=== PATIENT | female | born 1990 | race Caucasian/White ===

== ENCOUNTER 2017-02-13 20:15 | Emergency (ER) | payer MEDICAID, OTHER ==
[2017-02-13 20:22] VITALS: BMI 32.1
[2017-02-13 20:39] VITALS: BP 113/72
[2017-02-13 21:23] LABS: BILIRUBIN,URINE NEGATIVE (NEGATIVE); BLOOD/HEMOGLOBIN,URINE NEGATIVE (NEGATIVE); GLUCOSE, URINE NEGATIVE (NEGATIVE); KETONES,URINE NEGATIVE (NEGATIVE); LEUKOCYTE ESTERASE ,URINE 1+ (NEGATIVE); NITRITES,URINE NEGATIVE (NEGATIVE); PROTEIN,URINE NEGATIVE (NEGATIVE); UROBILINOGEN,URINE 1+ (NORMAL)
[2017-02-13 21:30] LABS: APPEARANCE,URINE SLIGHTLY HAZY (CLEAR); BACTERIA,URINE TRACE /HPF (NEGATIVE); COLOR,URINE YELLOW (YELLOW); RBC,URINE 0-3 /HPF (NEGATIVE); SQUAMOUS EPITHELIAL CELL,UR NUMEROUS /HPF (NEGATIVE)
[2017-02-13 21:34] LABS: AMNISURE ROM TEST NO MEMBRANES RUPTURE (NO RUPTURE)
== END 2017-02-13 21:29 | disposition home or self-care (01) ==
LOC: ER 20:15
DX: O47.03 False labor before 37 completed weeks of gestation, third trimester (principal)
CPT/HCPCS: 81001; 84112; 99284

== ENCOUNTER 2017-11-12 20:29 | Emergency (ER) | payer OTHER ==
[2017-11-12 20:51] VITALS: BP 144/77; BMI 34.1
== END 2017-11-12 22:23 | disposition left against medical advice (07) ==
LOC: ER 21:01
DX: R55 Syncope and collapse (principal)
CPT/HCPCS: 99281

== ENCOUNTER 2017-11-23 22:03 | Emergency (ER) | payer OTHER ==
[2017-11-23 22:10] VITALS: BP 137/90; BMI 34.6
--- NOTE | 2017-11-23 22:16 | DR.GENAD ---
HPI - PCP Primary Care Physician: NFD - Complaint/Symptoms Chief Complaint Doctors Comments: Patient presents with complaint that she felt like she could not breath about two hours ago. She denies fever, vomiting or diarrhea. Denies a history of cardiopulmonary disease. Chief Complaint:: PT STATES" I'M RAKESH LIKE HAVING TROUBLE BREATHING" - Source History Provided: Patient - Mode of Arrival Mode of Arrival: EMS - Timing Onset of Chief Complaint: 11/16/17 PMH - PMH Past Medical History: Yes Past Medical History: Depression Past Surgical History: Yes Surgical History: Cholecystectomy, Other - Family History History of Family Medical Conditions: Yes Family Medical History: Diabetes Mellitus - Social History Type of Tobacco Use: Cigarettes Does any household member use tobacco: Yes Alcohol Use: None Do you use any recreational Drugs:: No Lives With: Family Lives Where: Home - infectious screening In the last 2 months have you had wt loss of >10#?: NO Have you had fever, night sweats or hemotysis?: No Have you traveled outside the country in the last 6 months?: No Isolation: Standard ROS - Review of Systems Eyes: No Symptoms Reported ENTM: No Symptoms Reported Respiratoy: No Symptoms Reported Cardiovascular: No Symptoms Reported Gastrointestinal/Abdominal: No Symptoms Reported Genitourinary: No Symptoms Reported Neurological: No Symptoms Reported Musculoskeletal: No Symptoms Reported Integumentary: No Symptoms Reported Hematologic/Lymphatic: No Symptoms Reported Endocrine: No Symptoms Reported Psychiatric: No Symptoms Reported All Other Systems: Reviewed and Negative PE - Vital Signs Vitals: Temperature 98.5 F Pulse Rate 102 Respiratory Rate 18 Blood Pressure [Left Arm] 122/78 Blood Pressure 137/90 O2 Sat by Pulse Oximetry 98 - General Limitations: No Limitations General Appearance: Alert, In No Apparent Distress - Head Head Exam: Normal Inspection, Atraumatic - Eyes Eye exam: Normal Appearance, PERRL, EOMI - ENT ENT Exam: Normal Exam External Ear Exam: Normal External Inspection TM/Canal Exam: Bilateral Normal Nose Exam: Normal Nose Exam Mouth Exam: Normal Inspection Throat Exam: Normal Inspection - Neck Neck Exam: Normal Inspection - Chest Chest Inspection: Normal Inspection - Respiratory Respiratory Exam: Normal Lung Sounds Bilat Respiratory Exam: Bilateral Clear to Auscultation - Cardiovascular Cardiovascular Exam: Regular Rate, Normal Rhythm - Abdominal Exam Abdominal Exam: Normal Inspection, Normal Bowel Sounds Abdominal Tenderness: negative: RUQ, RLQ, LUQ, LLQ, Epigastrium, Suprapubic, Diffuse, Mild, Moderate, Severe, Other - Extremities Extremities Exam: Normal Inspection, Full ROM - Back Back Exam: Normal Inspection, Full ROM - Neurologic Neurological Exam: Alert, Oriented X3, CN II-XII Intact - Psychiatric Psychiatric Exam: Normal Affect - Skin Skin Exam: Warm, Dry, Intact ROR - Labs Reviewed Laboratory Results Reviewed?: Yes (Influenza negative) Laboratory: Specimen Type Clean catch urine 11/23/17 22:16 Urine Color Yellow (YELLOW) 11/23/17 22:16 Urine Appearance Slightly hazy (CLEAR) 11/23/17 22:16 Urine pH 5.0 (5.0 - 8.0) 11/23/17 22:16 Ur Specific [place] 1.030 (1.000-1.030) 11/23/17 22:16 Urine Protein Negative (NEGATIVE) 11/23/17 22:16 Urine Glucose (UA) Negative (NEGATIVE) 11/23/17 22:16 Urine Ketones Negative (NEGATIVE) 11/23/17 22:16 Urine Occult Blood Negative (NEGATIVE) 11/23/17 22:16 Urine Nitrite Negative (NEGATIVE) 11/23/17 22:16 Urine Bilirubin Negative (NEGATIVE) 11/23/17 22:16 Urine Urobilinogen Normal (NORMAL) 11/23/17 22:16 Ur Leukocyte Esterase 2+ (NEGATIVE) 11/23/17 22:16 Urine RBC 0-2 /HPF (NEGATIVE) 11/23/17 22:16 Urine WBC 2-6 /HPF (NEGATIVE) 11/23/17 22:16 Ur Squamous Epith Cells Moderate /HPF (NEGATIVE) 11/23/17 22:16 Urine Bacteria Trace /HPF (NEGATIVE) 11/23/17 22:16 Ur Culture Indicated? No/not indicated 11/23/17 22:16 Influenza Type A (PCR) Negative (NEGATIVE) 11/23/17 22:16 Influenza Type B (PCR) Negative (NEGATIVE) 11/23/17 22:16 - Diagnosis Discharge Problem: Anxiety - Discharge Plan Condition: Stable - Follow ups/Referrals Follow ups/Referrals: NFD,None [Primary Care Provider] - 3 days - Instructions
[2017-11-23 22:41] LABS: BILIRUBIN,URINE NEGATIVE (NEGATIVE); BLOOD/HEMOGLOBIN,URINE NEGATIVE (NEGATIVE); GLUCOSE, URINE NEGATIVE (NEGATIVE); KETONES,URINE NEGATIVE (NEGATIVE); LEUKOCYTE ESTERASE ,URINE 2+ (NEGATIVE); NITRITES,URINE NEGATIVE (NEGATIVE); PROTEIN,URINE NEGATIVE (NEGATIVE); UROBILINOGEN,URINE NORMAL (NORMAL)
[2017-11-23 22:54] LABS: APPEARANCE,URINE SLIGHTLY HAZY (CLEAR); BACTERIA,URINE TRACE /HPF (NEGATIVE); COLOR,URINE YELLOW (YELLOW); RBC,URINE 0-2 /HPF (NEGATIVE); SQUAMOUS EPITHELIAL CELL,UR MODERATE /HPF (NEGATIVE)
== END 2017-11-23 23:52 | disposition home or self-care (01) ==
LOC: ER 22:11
DX: F41.8 Other specified anxiety disorders (principal)
CPT/HCPCS: 81001; 87502; 99282